=== PATIENT | male | born 1955 | race Caucasian/White ===

== ENCOUNTER 2023-08-26 08:20 | Day surgery (SDC) | payer OTHER, SELFPAY ==
--- NOTE | 2023-08-09 11:54 | HPS.HSE ---
Family Physician
-
Family Physician: NO INTERVIEW UNKNOWN
Chief Complaint
-
Paroxysmal atrial fibrillation.
History of Present Illness
The patient is a 68 year old male presenting today for paroxysmal atrial fibrillation. He reports a history of palpitations and dizziness associated with this diagnosis. He previously underwent an atrial fibrillation ablation in 2013
secondary to his arrhythmia. He is currently rate controlled without the use of pharmacological therapy. He was previously taking Metoprolol; however, this was discontinued due to baseline sinus bradycardia with associated dizziness and fatigue. He
has been compliant with Eliquis for oral anticoagulation. He is interested in pursuing pulmonary vein isolation for further arrhythmia management. He denies any complaints today such as chest pain, shortness of breath, nausea, vomiting, diarrhea,
lightheadedness, cough, sore throat, or fever.
Medical History
Past Medical History
Past Medical History: Reports Other
Additional Past Medical History:
1. Paroxysmal atrial fibrillation, status post ablation 2013; oral anticoagulation with Eliquis.
2. Sinus bradycardia.
3. Hypertension.
4. Dyslipidemia.
5. Mild mitral regurgitation.
6. Mild aortic regurgitation.
7. Reported right lower extremity DVT after right total knee arthroplasty 2018.
8. Obstructive sleep apnea, compliant with CPAP.
9. Borderline diabetes, improving with weight loss.
10. GERD.
11. Hiatal hernia.
12. Colon polyps.
13. Nephrolithiasis.
14. Peripheral neuropathy associated with degenerative disc disease.
15. Osteoarthritis, status post right total knee arthroplasty 05/2018.
16. Squamous cell carcinoma, status post recurrent excision.
17. Vitamin D deficiency.
18. Mild thrombocytopenia.
19. Obesity, BMI 30.4.
Past Surgical History: Reports Other
Additional Past Surgical History:
1. Atrial fibrillation ablation.
2. Right total knee arthroplasty.
3. Achilles tendon repair x3.
4. Tonsillectomy.
5. Dental extractions.
6. Multiple colonoscopies.
7. Multiple endoscopies.
Social History
Tobacco: Non-smoker
Alcohol: Occasional
Personal:
Living: Other (He lives in a 3 story home with his . )
Family History
Family History: Not pertinent
Allergies / Home Medications
Allergy/Medication List:
Home medications:
1. Eliquis 5 mg p.o. twice a day.
2. Lovaza 1 capsule p.o. twice a day.
3. Omeprazole 20 mg p.o. daily.
4. Rosuvastatin 10 mg p.o. at bedtime.
5. Telmisartan 40 mg p.o. daily.
6. Mupirocin 2% ointment, 1 application topical daily.
7. Ergocalciferol 50,000 units p.o. weekly.
Allergies: No known allergies.
Review of Systems
-
A 12 point ROS was completed and negative except as noted: Yes
Physical Exam
Vital Signs
Blood pressure 169/73. Heart rate 45. Respirations 18. Pulse ox 96% on room air.
Height 5 feet, 10 inches. Weight 96.2 kg. BMI 30.4.
Physical Exam
General: Well Developed, Well Nourished and No Apparent Distress
HEENT: NormoCephalic, Moist mucous membranes and Atraumatic
Respiratory: Clear
Cardiac: Bradycardia
GI: Soft, Non Tender, Non Distended and Other (Obese. )
Musculoskeletal: No Edema and Normal Gait & Station
Skin: Warm and Dry
Neuro: AO x 3 and Nonfocal/grossly intact
Laboratory Results
-
DIAGNOSTIC STUDIES as of 08/09/2023: White blood cell count 5.3. Hemoglobin 14.7. Platelet count 124,000. PT 14.9. INR 1.19. Sodium 143. Potassium 4.0. BUN 24. Creatinine 0.8. Glucose 115. Calcium 9.0. Magnesium 1.8. AST 26. ALT 18. Albumin 4.1.
Type and screen O positive.
EKG 08/09/2023: Sinus bradycardia. Minimal voltage criteria for LVH, may be normal variant.
Chest CT 08/09/2023: Supernumerary right middle lobe pulmonary vein. No CTA evidence for anomalous pulmonary venous return. Minimal calcific atherosclerotic plaque in the left anterior descending coronary artery. The left atrial appendage has a
chicken wing morphology without evidence for thrombus.
Nuclear stress test 10/25/2019: Perfusion imaging reveals a medium area of mildly decreased perfusion that is fixed in the basal inferior, mid inferior, apical inferior, and apex segments consistent with soft tissue attenuation. The ejection
fraction is 50%. This is a low risk study.
Echocardiogram 10/04/2019: Normal left ventricular size and systolic function. No regional wall motion abnormalities are seen. LV ejection fraction is 62% by Gibson's biplane method of discs. Mild concentric left ventricular hypertrophy. Stage I
diastolic dysfunction suggestive of abnormal relaxation. Normal right ventricular size and function. Indexed LA volume is mildly abnormal. Mild mitral regurgitation. Mild aortic regurgitation. Trace tricuspid regurgitation. Estimated pulmonary
artery pressure of 35 mmHg. Compared to the previous echo 10/12/2017, there is no significant change.
Impression/Plan
-
IMPRESSION/PLAN:
1. Paroxysmal atrial fibrillation: The patient is in need of pulmonary vein isolation with Dr. Alex Mosquera on 08/26/2023. The benefits and risks of the procedure have been explained to the patient. The patient understands these risks and
wishes to proceed. He will not be required to undergo a pre-procedural transesophageal echocardiogram as he has been compliant with his home oral anticoagulation. He will hold his Eliquis the night before and morning of his procedure unless he is
otherwise specified by his surgeon. He will take no other medications the morning of his procedure.
[2023-08-09 12:45] VITALS: BMI 30.4
[2023-08-09 13:11] LABS: % Basophils 0.4 % (0-2); % Eosinophils 0.9 % (0-6); % Immature Granulocytes 0.4 % (0-0.5); % Lymphocytes 20.1 % (20.5-51.1); % Monocytes 7.6 % (1.7-9.3); % Neutrophils 70.6 % (42.2-75.2); Absolute Eosinophils 0.1 10^3/uL (0-0.7); Absolute Lymphocytes 1.1 10^3/uL (1.2-3.4); Absolute Monocytes 0.4 10^3/uL (0.1-0.6); Absolute Neutrophils 3.7 10^3/uL (1.4-6.5); Hematocrit 40.5 % (39.0-52.0); Hemoglobin 14.7 g/dL (13.0-18.0); Mean Corp Hgb Conc. 36.3 g/dL (33.0-37.0); Mean Corpuscular Hgb 31.7 pg (27.0-31.0); Mean Corpuscular Volume 87.3 fL (80.0-94.0); Mean Platelet Volume 10.3 fL (7.4-10.4); Nucleated Red Blood Cells % 0 % (-); Platelet Count 124 10^3/uL (130-400); Red Blood Cell Count 4.64 10^6/uL (4.70-6.10); Red Cell Dist. Width 13.1 % (11.5-14.5); White Blood Cell Count 5.3 10^3/uL (4.8-10.8)
[2023-08-09 13:17] LABS: INR 1.19; PT 14.9 Sec (11.4-14.6)
[2023-08-09 13:24] LABS: ALT (SGPT) 18 U/L (0-50); AST (SGOT) 26 U/L (17-59); Albumin 4.1 g/dl (3.5-5.0); Alkaline Phosphatase 172 U/L (38-126); Blood Urea Nitrogen 24 mg/dl (9-20); Carbon Dioxide 25 mmol/L (22-30); Chloride 110 mmol/L (98-107); Estimated Creatinine Clearance 103 ml/min; Glucose 115 mg/dl (70-99); Magnesium 1.8 mg/dl (1.6-2.3); Sodium 143 mmol/L (135-145); Total Bilirubin 1.1 mg/dl (0.2-1.3); Total Protein 6.4 g/dl (6.3-8.2); eGFR > 60.00
[2023-08-26] VITALS (11 sets, daily range): BP systolic 125–185; BP diastolic 68–91; BMI 30.1
[2023-08-26 11:17] LABS: ACT-LR - POC 334 Seconds (116-155)
[2023-08-26 11:38] LABS: ACT-LR - POC 311 Seconds (116-155)
[2023-08-26 12:11] LABS: ACT-LR - POC 331 Seconds (116-155)
--- NOTE | 2023-08-26 13:06 | ITS.CL.ABL ---
[facility] - Ablation
Ablation
Procedure Report:
ELECTROPHYSIOLOGIC STUDY AND POSSIBLE ABLATION
DATE: August 26, 2023
Primary Care Provider: Dr. Oscar Arciniega
INDICATION:
Symptomatic Atrial Fibrillation.
Paroxysmal
HISTORY: See H and P.
Symptomatic AF, poorly controlled with attempted medical therapy
He has a history of atrial fibrillation and underwent an ablation at [facility] 10 years ago. He recurred within 6 months. However soon thereafter he was diagnosed with rather severe obstructive sleep apnea. He was then started on CPAP
therapy and reports 100% compliance. Initially this resulted in improved symptom control from atrial fibrillation.
He has once again developed symptomatic atrial fibrillation despite medical therapy.
HAS-BLED: 1
Age
CHADSVASc: 2
HTN
Age
PRESENTING RHYTHM: SR
HISTORY: See H and P.
Symptomatic AF, poorly controlled with attempted medical therapy.
ANTICOAGULATION: Apixaban
'TIME-OUT': called and confirmed.
SEDATION/ANESTHESIA: provided via the anesthesia department using general anesthesia.
PROCEDURE:
Ultrasound Guidance performed by pa was utilized for femoral venous Vascular Access b/l.
A decapolar CS catheter was placed within the CS for mapping and pacing.
The intracardiac ultrasound catheter was positioned in the RA for continuous intracardiac ultrasound imaging.
Heparin bolus and infusion to target ACT at 300 -350 seconds was administered. Transseptal puncture was performed. This entailed advancing a sheath with dilator into the superior vena cava and withdrawing both (monitoring intracardiac ultrasound,
fluoroscopy and tip pressure) with the tip oriented toward the atrial septum. The fossa ovalis was engaged (indicated by sudden displacement of the sheath tip as well as tenting of the fossa seen on intracardiac ultrasound).
[employer] transseptal system was used. Left atrial catheter position was confirmed by echocardiographic imaging, pressure monitoring (LA mean pressure 11 mm Hg) and fluoroscopy. The sheath was advanced over the dilator and positioned in the left
atrium.
The multipolar mapping catheter was initially positioned through the transseptal sheath for high density mapping.
Geometry and voltage mapping was performed using the Solio multipolar grid catheter. Navex was utilized for three-dimensional electroanatomical mapping.
A 3-D map was created using Navex. A 3-D reconstructed CT image was compared to the 3-D Navex map to assist in anatomic evaluation, mapping and ablation.
He had previously undergone ablation at [facility] 10 years ago. There is no electrical isolation at the left superior, left inferior, right superior pulmonary veins and there is only partial isolation at the right inferior pulmonary
vein.
The [employer] Pulse Select PFA catheter and system was used for cardiac ablation. Catheter positioning was guided and confirmed using both I.C.E. and fluoroscopy.
PV isolation approach was used to electrically isolate each PV ostia.
Remapping with the Fung multipolar grid catheter found that all PVPs were eliminated at each vein demonstrating entrance block. Also pacing from the multipolar mapping catheter around the the circumference of the ostia was performed at 10 ma and
2.0 msec output to assess for exit block. This demonstrated electrical isolation at each of the pulmonary vein ostia, LSPV, LIPV, RSPV, RIPV.
Additional energy applications/additional ablation set was required to accomplish wide area circumferential ablation around each of the pulmonary vein sets. Furthermore additional ablation lesion set involve the posterior wall of the left atrium as
there were highly fractionated atrial electrograms and this is his second attempt at ablation.
I.C.E. :
Pre-Ablation Post-Ablation
LVEF: 55% 55%
WMA: None none
Pericardial effusion: None none
COMPLICATIONS:
None
SUMMARY:
- Mapping and ablation to isolate the PVs
- Additional AF ablation set after PVI.
- 3-D Electroanatomical Mapping
- Intracardiac Ultrasound
Post ablation, I discussed today's findings and results with the patient's , Eric.
RECOMMENDATIONS:
- Observe in monitored bed.
- Maintain oral anticoagulation.
- Office visit with me in 3 months.
Copy to:
Dr. Oscar Arciniega
[2023-08-26] MEDS: ANESTHETIC LOZENGE 1 LOZENGE PO (13:46)
[2023-08-26] MEDS: TYLENOL 650 MG PO (14:23)
== END 2023-08-26 17:00 | disposition home or self-care (01) ==
LOC: CATH 08:20
PROVIDERS: ATTENDING PHYSICIAN Internal Medicine Cardiovascular Disease; FAMILY PHYSICIAN Family Medicine
DX: I48.0 Paroxysmal atrial fibrillation (principal); R00.1 Bradycardia, unspecified; I10 Essential (primary) hypertension; E78.5 Hyperlipidemia, unspecified; Z86.718 Personal history of other venous thrombosis and embolism; Z96.651 Presence of right artificial knee joint; G47.33 Obstructive sleep apnea (adult) (pediatric); R73.03 Prediabetes; K21.9 Gastro-esophageal reflux disease without esophagitis; K44.9 Diaphragmatic hernia without obstruction or gangrene; Z87.19 Personal history of other diseases of the digestive system; N20.0 Calculus of kidney; G62.9 Polyneuropathy, unspecified; M19.90 Unspecified osteoarthritis, unspecified site; E55.9 Vitamin D deficiency, unspecified; D69.6 Thrombocytopenia, unspecified; E66.9 Obesity, unspecified; Z68.30 Body mass index [BMI] 30.0-30.9, adult; Z79.01 Long term (current) use of anticoagulants; Z79.899 Other long term (current) drug therapy
CPT/HCPCS: C1732; C1894; C1733; C1769; C1730; C1892; C1759; C1766; 36415; 75572; 76937; 80053; 83735; 85025; 85347; 85610; 86850; 86900; 86901; 93005; 93656; 93657; Q9967

== ENCOUNTER 2024-05-29 17:33 | Emergency (ER) | payer OTHER, SELFPAY ==
[2024-05-29 17:46] VITALS: BP 200/103
[2024-05-29 18:31] VITALS: BP 187/74
[2024-05-29 18:46] LABS: % Basophils 0.2 % (0-2); % Eosinophils 0.4 % (0-6); % Immature Granulocytes 0.4 % (0-0.5); % Lymphocytes 7.9 % (20.5-51.1); % Monocytes 4.3 % (1.7-9.3); % Neutrophils 86.8 % (42.2-75.2); Absolute Lymphocytes 0.6 10^3/uL (1.2-3.4); Absolute Monocytes 0.4 10^3/uL (0.1-0.6); Hematocrit 42.8 % (39.0-52.0); Hemoglobin 15.7 g/dL (13.0-18.0); Mean Corp Hgb Conc. 36.7 g/dL (33.0-37.0); Mean Corpuscular Hgb 32.6 pg (27.0-31.0); Mean Corpuscular Volume 88.8 fL (80.0-94.0); Mean Platelet Volume 10.8 fL (7.4-10.4); Nucleated Red Blood Cells % 0 % (-); Platelet Count 111 10^3/uL (130-400); Red Blood Cell Count 4.82 10^6/uL (4.70-6.10); Red Cell Dist. Width 12.7 % (11.5-14.5); White Blood Cell Count 8.1 10^3/uL (4.8-10.8)
[2024-05-29 18:48] LABS: ALT (SGPT) 19 U/L (0-50); AST (SGOT) 23 U/L (17-59); Alkaline Phosphatase 212 U/L (38-126); Blood Urea Nitrogen 20 mg/dl (9-20); Calcium 9.3 mg/dl (8.4-10.2); Carbon Dioxide 26 mmol/L (22-30); Chloride 106 mmol/L (98-107); Glucose 110 mg/dl (70-99); Potassium 4.4 mmol/L (3.5-5.1); Sodium 141 mmol/L (135-145); Total Bilirubin 1.1 mg/dl (0.2-1.3); Total Protein 6.7 g/dl (6.3-8.2); eGFR > 60.00
[2024-05-29] MEDS: ZOFRAN 4 MG IV (19:01)
[2024-05-29] MEDS: DILAUDID 0.5 MG IV (19:01)
[2024-05-29] MEDS: NSS 1000 IV (19:02)
[2024-05-29 20:33] LABS: Urine Albumin Negative (Neg - Trace); Urine Bilirubin Negative (Negative); Urine Character Clear (Clear); Urine Color Yellow; Urine Glucose Negative (Negative); Urine Ketone 2+ (Negative); Urine Leukocyte Negative (Negative); Urine Nitrite Negative (Negative); Urine Occult Blood 2+ (Negative); Urine Specific Gravity 1.015 (<1.030); Urine Urobilinogen Negative (Neg - 1+); Urine pH 6.5 (5.0-9.0)
[2024-05-29 20:42] LABS: Urine Mucus Few; Urine Squamous Cell 16-20 /LPF (Few); Urine White Cell 0-2 /HPF (0-5)
[2024-05-29 20:43] LABS: Urine Bacteria Few (Negative)
--- NOTE | 2024-05-29 22:19 | ED.GENMED ---
History of Present Illness
General
Chief Complaint: Flank Pain
Source: patient
Exam Limitations: none
Time Seen by Provider: 05/29/24 18:38
Nursing documentation reviewed up to this point in time: agreed with
History of Present Illness
History of Present Illness:
Patient to ED with complaint of left flank pain. He reports that he has a known left distal ureteral stone and is scheduled for removal by [facility] on Wednesday. He also reports 1 small stone in each kidney. States today he developed
increasing left flank pain. He spoke with surgeon assistant urologist and was advised to come to ED. Denies fever/chills. +nausea
Past History
Past History
ED Past Medical History: Arrthythmia, HTN and Hypercholesterolemia
Review of Systems
Review of Systems
Allergies reviewed?: Yes
All Other Systems: ROS reviewed and negative except as documented in HPI and ROS
Constitutional: Reports no symptoms
EENT: Reports no symptoms
Respiratory: Reports no symptoms
Cardiac: Reports no symptoms
ABD/GI: Reports nausea
: Reports flank pain (left flank pain)
Musculoskeletal: Reports no symptoms
Skin: Reports no symptoms
Neurological: Reports no symptoms
Psychiatric: Reports no symptoms
Phy Exam
General Physical Exam
General Presentation: well appearing and no apparent distress
General age: appears stated age
General Skin: warm and dry
General Habitus: normal
General Mental: alert
Gastrointestinal Exam
Gastrointestinal Exam: non tender and soft
Musculoskeletal Exam
Musculoskeletal Exam: full ROM
Skin Exam
Skin Exam: normal color, warm/dry and no rash
Psychiatric Exam
Psychiatric Exam: normal mood/affect
Course
Orders/Labs/Results
Orders:
Orders
05/29/24 18:27
CBC/With Diff [Complete Blood Count/With Diff] Urgent
CMP [Comprehensive Metabolic Panel] Urgent
05/29/24 18:44
HYDROmorphone [Dilaudid] 0.5 mg IV NOW STA
Ondansetron Injectable [Zofran] 4 mg IV NOW STA
05/29/24 18:45
0.9% Sodium Chloride 1000 ml [Nss] 1,000 ml IV BOLUS
05/29/24 18:46
CT Abd/pel Without Iv Or Oral Urgent
Comment:
Reason For Exam: left flank pain
05/29/24 20:26
Urinalysis Reflex To Culture Urgent
Date Specimen was Collected: 05/29/24
Time Specimen was Collected: 20:24
Urine Microscopic Reflex Cult Urgent
05/29/24 21:07
Oxycodone [Roxicodone] 5 mg PO NOW STA
Abnormal Lab Results
05/29/24 05/29/24
18:27 20:26
MCH 32.6 H pg
(27.0-31.0)
Plt Count 111 L 10^3/uL
(130-400)
MPV 10.8 H fL
(7.4-10.4)
Absolute Neuts (auto) 7.0 H 10^3/uL
(1.4-6.5)
Absolute Lymphs (auto) 0.6 L 10^3/uL
(1.2-3.4)
Neutrophils % 86.8 H %
(42.2-75.2)
Lymphocytes % 7.9 L %
(20.5-51.1)
Glucose 110 H mg/dl
(70-99)
Alkaline Phosphatase 212 H U/L
(38-126)
Urine Ketones 2+ A
(Negative)
Ur Occult Blood Reflex 2+ A
(Negative)
Urine RBC 7-10 A /HPF
(0-2)
Urine Bacteria (Reflex) Few A
(Negative)
05/29/24 18:27
05/29/24 18:27
Vital Signs
Initial and Last Documented VS:
Initial Vital Signs
Temp Pulse Resp BP Pulse Ox
98.0 F 58 16 200/103 98
05/29/24 17:46 05/29/24 17:46 05/29/24 17:46 05/29/24 17:46 05/29/24 17:46
Last Documented Vital Signs
Temp Pulse Resp BP Pulse Ox
98.0 F 58 16 187/74 98
05/29/24 17:46 05/29/24 17:46 05/29/24 17:46 05/29/24 18:31 05/29/24 17:46
*Radiology
Radiology exam reviewed: radiology read reviewed
*Pulse Oximetry
Patient hypoxic: no
*Critical Care Note
Total Time (30-74mins, 75-104mins- exclusive of procedures): Not Applicable
Update Note
Update Note:
CT report reviewed with jazmyne urololgist from [facility]. CT is unchanged. No evidence of UTI. Pain well controlled with pain medications. WIll discharge home and he will follow up with [facility] in the AM. Patient is agreeable to
plan.
ED Attending Note
-
Portions of this chart may have been created with voice recognition software.� Occasional wrong word or��sound alike� substitutions may have occurred due to the inherent limitations of voice recognition software.
Discharge Plan
Departure
Patient Disposition: Home (Routine Discharge)
Date of Disposition: 05/29/24
Time of Disposition: 21:07
Patient with high blood pressure during this ER visit?: No
Condition: Good
Covid-19: Not Applicable
Discharge Problem:
Flank pain, Kidney stones
Instructions: Kidney Stones (DC)
Prescriptions:
New
oxycodone 5 mg capsule
5 mg PO Q4H PRN (Reason: Pain) Qty: 15 0RF
No Action
telmisartan 40 mg Tablet
40 mg PO DAILY
omega-3 acid ethyl esters [Lovaza] 1 gram Capsule
1 cap PO BID
Eliquis 5 mg Tablet
5 mg PO BID
rosuvastatin 10 mg Tablet
10 mg PO HS
ergocalciferol (vitamin D2) 1,250 mcg (50,000 unit) Capsule
1,250 mcg PO QWEEK
doxycycline hyclate 100 mg Capsule
100 mg PO BID
betamethasone dipropionate 0.05 % Cream
1 applic TOPICAL BID
esomeprazole magnesium 20 mg Tablet,Delayed Release (Dr/Ec)
20 mg PO HS
Referrals:
Oscar Arciniega DO [Family Provider] -
Activity Restrictions/Additional Instructions:
Follow up with [facility] in the AM. Return to the emergency department immediately for any changes in/worsening of your symptoms.
Interventions
Interventions:
*Risk Screen - Suicide Last Done: 05/29/24 17:46
*General Assessment Last Done: 05/29/24 19:54
*Neglect/Abuse Screening Last Done: 05/29/24 17:46
*ED- Fall Risk Assessment Last Done: 05/29/24 19:54
*ED COVID-19 Vaccine History Last Done: 05/29/24 19:54
*Nursing Disposition Last Done: 05/29/24 21:12
NF-Gvyylb-Qspmwpjpjz Assessment Last Done: 05/29/24 19:54
ED-Male Genitourinary Assessment Last Done: 05/29/24 19:54
Discharge Date and Time
Discharge Date/Time: 05/29/24 21:26
Print Language: TUNISIAN
== END 2024-05-29 21:26 | disposition home or self-care (01) ==
LOC: EMR 17:33
PROVIDERS: Nurse Practitioner; EMERGENCY PHYSICIAN Emergency Medicine; FAMILY PHYSICIAN Family Medicine
DX: N13.2 Hydronephrosis with renal and ureteral calculous obstruction (principal); R10.9 Unspecified abdominal pain
CPT/HCPCS: 99284; 96374; 96375; 96361; 74176; 80053; 81003; 81015; 85025